=== PATIENT | male | born 1985 | race Caucasian/White ===

== ENCOUNTER → 2025-02-11 | Outpatient (CLI) | payer OTHER ==
[2025-02-11 16:45] LABS: Appearance,Urine Clear (Clear); Bilirubin,Urine Negative (Negative); Blood,Urine Large (Negative); Color,Urine Yellow (Yellow); Ketones,Urine Negative (Negative); Nitrite,Urine Negative (Negative); PH, Urine 5.5; Specific Gravity,Urine 1.019 (1.001-1.030)
[2025-02-11 17:04] LABS: Bacteria,Urine None Seen (None Seen)
== END | disposition home or self-care (01) ==
LOC: LABWHC1 08:45
PROVIDERS: ATTEND Urology
DX: Z01.812 Encounter for preprocedural laboratory examination (principal)
CPT/HCPCS: 81001; 87086

== ENCOUNTER → 2025-02-14 | Outpatient (CLI) | payer OTHER ==
--- NOTE | 2025-02-14 09:22 | XR ---
EXAMINATION TYPE: XR KUB DATE OF EXAM: 02/14/2025 8:34 AM COMPARISON: None CLINICAL INDICATION: Male, 39 years old with history of Z01.818 ENCOUNTER FOR OTHER PREPROCEDURAL EXA MINATION prior to urology procedure; PHH, pain, bilateral kidney stones, reports passing 5 stones yes terday. TECHNIQUE: One radiographic view of the abdomen was obtained. FINDINGS: Body habitus and bowel content partially obscures the renal shadows. Possible left-sided re nal stone measuring up to 1.0 cm. Mild overall central burden. Nonobstructive bowel gas pattern. IMPRESSION: Possible 1 cm left renal stone. [facility], , 02/14/2025 9:20 AM
== END | disposition home or self-care (01) ==
LOC: RADXRMAIN 08:20
PROVIDERS: ATTEND Urology
DX: Z01.818 Encounter for other preprocedural examination (principal)
CPT/HCPCS: 74018